=== PATIENT | female | born 1990 | race Caucasian/White ===

== ENCOUNTER 2016-10-25 03:40 | Inpatient (IN) | payer BC ==
[2016-10-27] MEDS ORDERED: MOTRIN-DPS800 MG PO (14:34)
[2016-10-27] MEDS ORDERED: NIPPLECREAM TP (14:34)
[2016-10-27] MEDS ORDERED: PRENATAL VITAM1 EAC6 PO (14:34)
== END 2016-10-26 15:05 | disposition home or self-care (01) | DRG 775 ==
DX: O77.0 Labor and delivery complicated by meconium in amniotic fluid (principal); O26.893 Other specified pregnancy related conditions, third trimester; O70.1 Second degree perineal laceration during delivery; Z3A.39 39 weeks gestation of pregnancy; Z37.0 Single live birth